=== PATIENT | male | born 2000 | race Caucasian/White ===

== ENCOUNTER 2022-05-25 11:37 | Emergency (ER) | payer SELFPAY ==
[2022-05-25 11:38] VITALS: BP 129/74; PULSE 84; RESP 16; TEMP 36.1; O2SAT 100; BMI 29.2
--- NOTE | 2022-05-25 11:51 | EDS_ITS ---
HPI <PADMINI Hernandez - Last Filed: 05/25/22 13:24> HPI - GI History of Present Illness Chief Complaint: Abd Pain Narrative Narrative: 21-year-old male with history of ADHD presents the [facility] with 2 different issues. Patient states that he has had umbilical pain for the last 3 days. Patient states that the area is red swollen and painful to palpation. Patient states the pain is worse when he goes in to his bellybutton. Patient denies any fever or chills. Patient states that this has not happened before. Patient also complains of pain to the right knee, states that sometimes it locks up he cannot move it until he rotates it. Patient denies any specific injury. Patient [place] any fever chills nausea or vomiting. PFSH <PADMINI Hernandez - Last Filed: 05/25/22 13:24> [facility] Home Medications clotrimazole 1 % topical cream 1 applic topical BID 2 weeks #15 grams 05/25/22 [Rx Last Taken Unknown] Allergy/AdvReac Type Severity Reaction Status Date / Time No Known Allergies Allergy Verified 05/25/22 11:39 Surgical History (Updated 05/25/22 @ 11:43 by Bri Pabon) History of intestinal surgery Social History Smoking Status: Never smoker ROS <PADMINI Hernandez - Last Filed: 05/25/22 13:24> ROS ED ROS Narrative Constitutional: Negative for fever, chills, weight loss, weakness Eyes: Negative for vision loss, vision change, double vision ENT: Negative for any sore throat, ear pain, congestion Cardiovascular: Negative for any chest pain, tightness, palpitations Respiratory: Negative for any cough, sputum production, hemoptysis, dyspnea, dyspnea on exertion, orthopnea Gastrointestinal: Negative for any abdominal pain, nausea, vomiting, diarrhea, constipation, blood in stool, blood in vomit : Negative for any urinary frequency, dysuria, retention, blood in urine Muscle skeletal: Negative for any muscle joint pain, stiffness, myalgias, arthralgias, neck pain, back pain. Positive intermittent pain to the right knee Neurological: Negative for any headache, syncope, numbness or tingling, dizziness Skin: Negative for any rashes, lumps, itching, abrasions, lacerations. Positive for redness, pain on palpation to the umbilical area Psychiatric: Negative for any depression, anxiety, stress, suicidal ideation, homicidal ideation Hematologic: Negative for any easy bruising, excessive bruising, easy bleeding Allergies: Negative for any eczema, hives, rash EXAM <PADMINI Hernandez - Last Filed: 05/25/22 13:24> Physical Exam Narrative Exam Narrative: Vital signs reviewed. HEET: Head normocephalic atraumatic, TMs clear bilaterally. Posterior pharynx is clear, moist mucous membranes. Nares clear bilaterally. Neck: Supple with no lymphadenopathy or tenderness. No signs of meningismus, negative jolt sign. Cardiac: Regular rate and rhythm no murmurs gallops or rubs, equal peripheral pulses bilaterally. Respiratory: Lungs clear to auscultation bilaterally. No chest tenderness. Abdomen: Soft, nontender, nondistended. No abdominal bruit or pulsatile masses. No hepatosplenomegaly. Patient has no belly pain, patient's pain is superficial around the umbilicus. There is a redness, slight crust around the umbilicus that goes inward. It is painful to palpation with touch. Patient states that is also itchy. Negative for any drainage. Negative for any symptoms of cellulitis. Extremities: No peripheral edema, no signs of gross trauma or deformity. Active full range of motion of all extremities. Intact extensor mechanism. Patient able to flex and extend without any difficulty. No signs or symptoms of edema, ecchymosis, effusion. Knee joint appears intact. Neuro: Cranial nerves II through XII intact, no focal neurological deficits. Skin: Clean dry and intact with no rash, purpura, petechiae, vesicles or pustules. Backs/flank: No CVA tenderness, no midline spinal tenderness, no deformity. Psych: Normal mood and affect. No SI, HI or acute psychosis. Const Vital Signs: 05/25/22 11:38 Temperature 97.0 F L Temperature Source Temporal Pulse Rate 84 Respiratory Rate 16 Blood Pressure 129/74 H Blood Pressure Mean 92 Pulse Ox 100 Oxygen Delivery Method Room Air Positive well nourished and well developed General Appearance ED: well developed <Dr. Bettye Burr DO - Last Filed: 05/28/22 03:34> Physical Exam Const Vital Signs: 05/25/22 11:38 Temperature 97.0 F L Temperature Source Temporal Pulse Rate 84 Respiratory Rate 16 Blood Pressure 129/74 H Blood Pressure Mean 92 Pulse Ox 100 Oxygen Delivery Method Room Air [facility] <PADMINI Hernandez - Last Filed: 05/25/22 13:24> [facility] Radiography Diagnostic Testing: Clinical Impression(s) from Imaging Studies Knee X-Ray 05/25/22 12:30 IMPRESSION: Normal x-ray examination of the knee. Electronically Signed: Jordy Elaine MD at 13:04 EDT , Treatment and Re-Evaluation Narrative: Patient appears well, patient appears nontoxic, vital signs are stable. Patient presents to the emergency department with 3 days of generalized umbilical pain, itching, as well as intermittent right knee pain and joint stiffness. Patient physical examination of the abdomen is consistent with tinea, there is no signs or symptoms cellulitis, no open sores. Patient's right knee was unremarkable, x-ray was completed, 2 by ER physician shows no fracture, no dislocation, normal x-ray of the knee. Patient will follow-up with orthopedics regarding this issue. Patient's tinea will be treated with topical clotrimazole. He is instructed to use it twice a day, to not scratch or touch his umbilical area. Patient mother given return precautions. Stable for discharge <Dr. Bettye Burr DO - Last Filed: 05/28/22 03:34> [facility] Radiography Diagnostic Testing: Clinical Impression(s) from Imaging Studies Knee X-Ray 05/25/22 12:30 IMPRESSION: Normal x-ray examination of the knee. Electronically Signed: Jordy Elaine MD at 13:04 EDT , Treatment and Re-Evaluation Narrative: Patient appears well, patient appears nontoxic, vital signs are stable. Patient presents to the emergency department with 3 days of generalized umbilical pain, itching, as well as intermittent right knee pain and joint stiffness. Patient physical examination of the abdomen is consistent with tinea, there is no signs or symptoms cellulitis, no open sores. Patient's right knee was unremarkable, x-ray was completed, 2 by ER physician shows no fracture, no dislocation, normal x-ray of the knee. Patient will follow-up with orthopedics regarding this issue. Patient's tinea will be treated with topical clotrimazole. He is instructed to use it twice a day, to not scratch or touch his umbilical area. Patient mother given return precautions. Stable for discharge I have personally performed a face to face assessment of the patient and have reviewed the FLO Note. I performed a substantive portion of the visit including all aspects of the following. My pierre findings include: Patient is a 21-year-old female present with mother for itching and redness around his umbilicus that is been present for couple days. In addition he notes that he has clicking and locking up of his right knee. Denies any trauma. Patient is quite well-appearing and has a normal gait in the ER. His vital signs are normal. Head normocephalic/atraumatic. Moist mucosal membranes. Neck is supple. Heart regular rate and rhythm. Lungs are clear to auscultation bilaterally. Abdomen soft and nontender. No abdominal distention. No hernia appreciated. On skin exam patient has a well demarcated area of erythema around his umbilicus and into the umbilicus with some associated scaling. Is consistent with a fungal infection. No satellite lesions appreciated. No crusting consistent with impetigo present. Patient is normal extremities. No effusion of the right knee noted. Patella is normal position. Normal laxity and stress testing of the knee. X-ray of the knee obtained and interpreted by myself as well as radiology. No acute process. Physical exam consistent with fungal infection, likely tinea, of the umbilicus. Will be treated with clotrimazole. Given referral for primary care doctor as well as orthopedist. Counseled return precautions. Discharged home in stable condition. Patient and mother verbalized agreement understand with this plan. Other additions or changes: [None] Discharge Plan Triage Chief Complaint: Abd Pain ED Midlevel Provider: Vinay Rice ED Provider: Bettye Burr Dx/Rx/DC Orders Clinical Impression: Tinea corporis, Acute knee pain Instructions: Knee Pain, ED Fungal Skin Infection (Tinea), ED Knee Sprain Prescriptions: New clotrimazole 1 % cream 1 applic topical BID 14 Days Qty: 15 0RF Rx Instructions: Apply to your umbilical area twice a day Primary Care Provider: Care Physician,No Primary Referrals: Tera Rivera DO [Med Staff - Active Staff] - NOT,DEFINED [Non-Staff] - Activity Restrictions/Additional Instructions: Use the cream for 2 weeks, try not to continually touch your bellybutton. Follow-up with Disposition Disposition: Home, Self Care Discharge Date/Time: 05/25/22 13:33
--- NOTE | 2022-05-25 12:30 | RAD_ITS ---
STUDY: X-RAY - RIGHT KNEE REASON FOR EXAM: Male, 21 years old. Right knee pain. TECHNIQUE: 4 view(s) of the knee. COMPARISON: None. FINDINGS: Normal visualized distal femur. Normal visualized proximal tibia and fibula. Normal proximal tibiofibular articulation. Normal medial femorotibial compartment. Normal lateral femorotibial compartment. Normal patellofemoral articulation. The soft tissue structures are unremarkable. RAD/Knee 4 or More Views IMPRESSION: Normal x-ray examination of the knee. Electronically Signed: Jordy Elaine MD at 13:04 EDT ,
== END 2022-05-25 13:33 | disposition home or self-care (01) ==
PROVIDERS: Emergency Provider Emergency Medicine; Visit Provider Emergency Medicine
DX: B35.4 Tinea corporis (principal); R10.9 Unspecified abdominal pain; M25.561 Pain in right knee; F90.9 Attention-deficit hyperactivity disorder, unspecified type
CPT/HCPCS: 73564; 99283